=== PATIENT | male | born 1975 | race Caucasian/White ===

== ENCOUNTER 2024-02-21 18:10 | Emergency (ER) | payer BC, SELFPAY ==
[2024-02-21 18:23] VITALS: BP 142/89; PULSE 61; RESP 18; TEMP 36.8; O2SAT 99; BMI 23.4
--- NOTE | 2024-02-21 18:32 | XR_ITS ---
Examination: CT abdomen and pelvis without contrast. Coronal 3-D reconstructions. Sagittal 2-D reconstructions. Date and time of exam:February 21, 2024 1903 hrs. Comparison November 09, 2023 Indications: Bilateral flank pain 2 months, history right hydronephrosis secondary to right ureteral calculus on CT stone study November 09, 2023 CTDI: vol (mGy): 6.72 DLP: (mGycm): 411 Technique: Axial images of the abdomen have been obtained, 3 mm slice thickness Intravenous contrast material has not been administered. Low dose protocols were performed. One or more of the following dose reduction techniques were used; automated exposure control, adjustment of the mA and/or KV according to patient size, use of iterative reconstruction technique. Findings: No focal liver or splenic lesions No gallstones No pancreatic or adrenal mass 4 mm lower pole left renal calculus Mild to moderate right hydronephrosis secondary to 6 mm, 2 mm proximal right ureteral calculi, coronal image 81 Normal appendix No bowel obstruction No prostatomegaly No bladder mass The osseous structures are intact Impression: Mild to moderate right hydronephrosis secondary to 6 mm and 2 mm proximal right ureteral calculi
--- NOTE | 2024-02-21 18:34 | EDNOTE_ITS ---
ED Male Genitalurinary RME/HPI General Chief complaint: Urogenital-Male Stated complaint: I THING I'M HAVING KIDNEY STONES Time Seen by Provider: 02/21/24 18:35 Source: patient Arrival date/time: 02/21/24 18:10 48-year-old male with a history of hyperlipidemia presents to the emergency room with a chief complaint of left-sided flank pain and bilateral lower abdominal pain x 1 day. Patient states he has a history of kidney stones and the pain has been very similar. Mode of arrival: ambulatory Limitations: no limitations Related Data Home Medications ?Medication ?Instructions ?Recorded ?Confirmed lisinopril 20 mg tablet 20 mg PO QDAY 10/10/23 11/27/23 tamsulosin 0.4 mg capsule 0.4 mg PO QHS 11/27/23 11/27/23 Previous Rx's ?Medication ?Instructions ?Recorded hydrocodone 5 mg-acetaminophen 325 1 tab PO BID PRN pain #10 tabs 02/22/24 mg tablet tamsulosin 0.4 mg capsule (Flomax) 0.4 mg PO QDAY #14 caps 02/22/24 Allergies Allergy/AdvReac Type Severity Reaction Status Date / Time NKA* Allergy Uncoded 02/21/24 18:11 Review of Systems Review of Systems Systems Reviewed: All systems reviewed, normal except as documented Constitutional Constitutional: Reports system reviewed and no additional complaints, except as documented, Denies fatigue, Denies fever(s), Denies headache(s) and Denies weakness Eyes Eyes: Reports system reviewed and no additional complaints, except as documented, Denies blurry vision and Denies change in vision ENT Ears, Nose, Mouth, and Throat: Reports system reviewed and no additional complaints, except as documented, Denies otalgia, Denies headache(s), Denies nasal congestion, Denies throat swelling and Denies vertigo Cardiovascular Cardiovascular: Reports system reviewed and no additional complaints, except as documented, Denies chest pain, Denies dyspnea and Denies dyspnea on exertion Respiratory Respiratory: Reports system reviewed and no additional complaints, except as documented, Denies chest congestion, Denies cough, Denies dyspnea, Denies dyspnea on exertion and Denies wheezing Gastrointestinal Gastrointestinal: Reports system reviewed and no additional complaints, except as documented, Denies abdominal pain, Denies cramping, Denies nausea and Denies vomiting Genitourinary Genitourinary: Reports system reviewed and no additional complaints, except as documented, Reports dysuria and Reports hematuria Musculoskeletal Musculoskeletal: Reports system reviewed and no additional complaints, except as documented and Reports back pain Integumentary/Breasts Skin/Breast: Reports system reviewed and no additional complaints, except as documented and Denies wounds Neurologic Neurologic: Reports system reviewed and no additional complaints, except as documented, Denies confusion, Denies headache(s), Denies lack of coordination, Denies vertigo and Denies weakness Psychiatric Psychiatric: Reports system reviewed and no additional complaints, except as documented, Denies anxiety, Denies confusion, Denies depression, Denies paranoia, Denies suicidal ideation and Denies tactile hallucinations Endocrine Endocrine: Reports system reviewed and no additional complaints, except as documented and Denies fatigue Hematologic/Lymphatic Hematologic/Lymphatic: Reports system reviewed and no additional complaints, except as documented and Denies lymphadenopathy Allergic/Immunologic Allergic/Immunologic: Reports system reviewed and no additional complaints, except as documented, Denies throat swelling, Denies urticaria and Denies wheezing Past Medical History Social History SMOKING STATUS: Never smoker ED Exam General Limitations: Present no limitations General appearance: Present alert and in no apparent distress Head Head exam: Present atraumatic Eye Eye exam: Present normal appearance, PERRL and EOMI ENT ENT exam: Present normal exam, normal oropharynx and mucous membranes moist Neck Neck exam: Present normal inspection, full ROM and trachea midline Chest Chest inspection: Present normal inspection and symmetric chest wall rise Respiratory Respiratory exam: Present normal lung sounds bilaterally Cardiovascular Cardiovascular exam: Present regular rate, normal rhythm and normal heart sounds Abdominal Exam Abdominal exam: Present soft and normal bowel sounds Extremities Exam Extremities exam: Present normal inspection and full ROM Back Exam Back exam: Present normal inspection, full ROM and CVA tenderness (L) Neurological Exam Neurological exam: Present alert, oriented X3 and CN II-XII intact Psychiatric Psychiatric exam: Present normal affect and normal mood Skin Skin exam: Present warm, dry, intact and normal color Course Quality Measures none Orders Category Date Time Status Insert IV NOW Care 02/21/24 20:[address] abdomen pelvis wo con Stat Exams 02/21/24 18:32 Completed CBC Stat Lab 02/21/24 18:38 Completed CMP [Comprehensive Metabolic Panel] Stat Lab 02/21/24 18:38 Completed Lipase Stat Lab 02/21/24 18:38 Completed UA [Urinalysis] Stat Lab 02/21/24 19:33 Completed Urine Culture Stat Lab 02/21/24 19:33 Received HYDROcodone*/APAP 5/325 [[place] 5/325] Med 02/21/24 20:48 Discontinued 1 tab PO X1 ONE Ketorolac Inj [Toradol Inj] Med 02/21/24 18:32 Discontinued 30 mg IM X1 ONE Morphine Inj Med 02/21/24 21:16 Discontinued 4 mg IVP X1 ONE Ondansetron Inj [Zofran Inj] Med 02/21/24 21:16 Discontinued 4 mg IV X1 ONE Piper/Tazo Inj [Zosyn Inj] 3.375 gm Med 02/21/24 20:52 Discontinued Sodium Chloride 0.9% (P) [Ns 0.9% (P)] 50 ml IV X1 Vital Signs Vital signs: Vital Signs Temperature 98.3 F 02/21/24 18:23 Pulse Rate 61 02/21/24 18:23 Respiratory Rate 18 02/21/24 18:23 Blood Pressure 142/89 H 02/21/24 18:23 Pulse Oximetry (%) 99 02/21/24 18:23 Oxygen Delivery Method Room Air 02/21/24 18:23 O2 saturation 99% within normal limits Urogenital - Male MDM Narrative MDM Narrative:: 48-year-old male with a history of hyperlipidemia presents to the emergency room with a chief complaint of left-sided flank pain and bilateral lower abdominal pain x 1 day. Patient states he has a history of kidney stones and the pain has been very similar. Clinically the patient appears nontoxic and in no apparent distress. Physical examination shows left-sided 7 out of 10 CVA tenderness with bilateral 7 out of 10 lower abdominal pain with palpation. CT of the abdomen pelvis was completed and shows mild to moderate right hydronephrosis secondary to a 6 mm and a 2 mm proximal right ureteral calculi. The patient also has an elevated white count as well as urinary tract infection. The patient was given IV antibiotics and my attending physician Dr. Chicas spoke to a urologist and the transfer center. Based on the urologist's recommendations and after speaking with my attending physician Dr. Trevino the patient is ready for discharge with pain medication. The patient states he will see his urologist Dr. Hung tomorrow morning. Patient was given strict return precautions and educated to return to the emergency room for any evidence of worsening signs or send Patient data External records reviewed:: [facility] previous records Clinical information provided by:: patient Social determinants that could affect healthcare access:: none Patient has the following chronic illnesses:: No chronic illness How is presenting disease/condition affected by chronic disease/condition?: no chronic disease Evaluation data The following diagnostics were reviewed and interpreted by me:: lab results and radiology exam(s) Lab and/or radiology exams considered but not ordered:: Labs and radiology exams considered and ordered Interpretation Summary: CT abdomen and pelvis-Findings: No focal liver or splenic lesions No gallstones No pancreatic or adrenal mass 4 mm lower pole left renal calculus Mild to moderate right hydronephrosis secondary to 6 mm, 2 mm proximal right ureteral calculi, coronal image 81 Normal appendix No bowel obstruction No prostatomegaly No bladder mass The osseous structures are intact Impression: Mild to moderate right hydronephrosis secondary to 6 mm and 2 mm proximal right ureteral calculi Medications / Prescriptions Medications or Prescriptions considered but not ordered:: Rx given Medication administrations:: Medication Administration History Discontinued Medications Hydrocodone Bitart/Acetaminophen (Hydrocodone/Apap 5/325 Tablet) 1 tab PO X1 ONE Stop: 02/21/24 20:49 Last Admin: 02/21/24 23:17 Dose: Not Given Documented By: GUICHO Non-Admin Reason: Discontinued Piperacillin Sod/Tazobactam (Sod 3.375 gm/ Sodium Chloride) 50 mls @ 100 mls/hr IV X1 ONE Stop: 02/21/24 21:21 Last Infusion: 02/21/24 22:45 Dose: Infused Documented By: Admin: 02/21/24 21:24 Dose: 100 mls/hr Documented By: GUICHO Ketorolac Tromethamine (Ketorolac Inj 60 Mg/2 Ml Vial) 30 mg IM X1 ONE Stop: 02/21/24 18:33 Last Admin: 02/21/24 18:39 Dose: 30 mg Documented By: GUICHO Morphine Sulfate (Morphine Sulf Inj 10 Mg/Ml Vial) 4 mg IVP X1 ONE Stop: 02/21/24 21:17 Last Admin: 02/21/24 21:24 Dose: 4 mg Documented By: GUICHO Ondansetron HCl (Ondansetron Inj 2 Mg/Ml Inj 2 Ml) 4 mg IV X1 ONE; Protocol Stop: 02/21/24 21:17 Last Admin: 01/15/25 21:24 Dose: 4 mg Documented By: MP Rx given Consultations Consultation(s) initiated? (list below): No Diagnosis Urogenital Male Differential Diagnosis: urinary tract infection, urethritis, epididymitis, acute retention of urine and other (Ureteral calculi) Most likely diagnosis given after review of the tests above:: Ureteral calculi Admission Indicated Admission indicated?: not indicated Admission Request Was there a request for admission?: No Disposition Plan Disposition Plan: Discharge Discharge Attestation Discharge Attestation: The patient and all family members were given an opportunity to ask questions and understood the discharge instructions. Discharge instructions specifically effects, indications for sooner follow up or return to the emergency department, and the expected course of current diagnosis. Patient condition: Stable Discharge Plan Plan Patient Disposition: HOME (Self Care) Disposition Comment: Stable Prescriptions/Referrals Prescriptions/Med Rec: New tamsulosin [Flomax] 0.4 mg capsule 0.4 mg PO QDAY Qty: 14 0RF hydrocodone-acetaminophen 5-325 mg tablet 1 tab PO BID MDD 10mg PRN (Reason: pain) Qty: 10 0RF No Action lisinopril 20 mg tablet 20 mg PO QDAY tamsulosin 0.4 mg capsule 0.4 mg PO QHS Referrals: Payton Schilling MD [Primary Care Provider] - In 1 week Problem List Clinical Impression: Hydronephrosis with ureteral calculus, Urinary tract infection Patient/Caregiver Discharge Instructions Education Materials: ED Pyelonephritis, Male (Adult) Additional Instructions: Please follow-up with your urologist in the next 24 to 48 hours. Pain medication was sent to your pharmacy please pick it up and take it as indicated. You have a stone in your ureter, it is very important to see your urologist as soon as possible to help resolve this problem. For any evidence of worsening signs or symptoms please return to the emergency room immediately Print Language: Bulgarian Stand Alone Forms: Estelita Award Info., Patient Portal Info Letter HECTOR/KIMBERLY Supervising Physician HECTOR/KIMBERLY Supervising Physician: Dr. Chicas
[2024-02-21] MEDS: KETOROLAC INJ 60 MG/2 ML VIAL 30 MG IM (18:39)
[2024-02-21 18:57] LABS: Basophils % (Auto) 0 % (0-2.5); Eosinophils # (Auto) 0.1 Thou/mm3 (0.0-0.5); Eosinophils % (Auto) 0 % (0-10); Hematocrit 38.9 % (41.0-53.0); Hemoglobin 13.7 g/dL (13.5-16.0); Immature Granulocytes % (Auto) 0 % (0-0); Immature Granulocytes Auto 0.07 Thou/mm3 (0.00-0.00); Lymphocytes # (Auto) 1.3 Thou/mm3 (1.0-4.8); Lymphocytes % (Auto) 8 % (10-50); Mean Corpuscular HGB Conc 35.2 g/dl (31.0-37.0); Mean Corpuscular Hemoglobin 30.3 pg (25.0-35.0); Mean Corpuscular Volume 86 fL (80-100); Monocytes # (Auto) 1.3 Thou/mm3 (0.0-0.8); Monocytes % (Auto) 8 % (0-12); Neutrophils # (Auto) 13.9 Thou/mm3 (1.8-7.7); Neutrophils % (Auto) 84 % (37-80); Nucleated Red Blood Cell % 0 /100 WBC (0); Platelet Count 248 Thou/mm3 (140-440); RDW Standard Deviation 40.6 fL (35.1-43.9); Red Blood Count 4.52 Miln/mm3 (4.50-5.90); White Blood Count 16.7 Thou/mm3 (3.8-10.6)
[2024-02-21 19:28] LABS: Alanine Aminotransferase 26 U/L (10-49); Albumin, Serum 5.2 gm/dL (3.5-5.0); Albumin/Globulin Ratio 2.6 (1.2-2.2); Alkaline Phosphatase 85 U/L (46-116); Anion Gap 9 (7-16); Aspartate Amino Transferase 21 U/L (0-34); BUN/Creatinine Ratio 9 Ratio (12-20); Bilirubin,Total 0.5 mg/dL (0.3-1.2); Blood Urea Nitrogen 10 mg/dL (9-23); Carbon Dioxide 28.1 mMol/L (20.0-31.0); Chloride 102 mMol/L (98-107); Creatinine (Component) 1.1 mg/dL (0.6-1.3); Estimated Creatinine Clearance 85.7 mL/min (>60); Glucose 121 mg/dL (74-106); Lipase 67 U/L (12-53); Osmolality,Calculated 277 (275-295); Potassium 4.2 mMol/L (3.4-5.1); Sodium 139 mMol/L (136-145); Total Protein 7.2 gm/dL (5.7-8.2); eGFR > 60 See Note
[2024-02-21 19:50] LABS: Collection Type, Urine Clean Catch
[2024-02-21 20:11] LABS: Bilirubin,Urine Negative (Negative); Blood,Urine 2+ (Negative); Clarity,Urine Clear (Clear/Hazy); Color,Urine Yellow (Lt Yel-Yel); Glucose, Urine Negative (Negative); Ketones,Urine Negative (Negative); Leukocyte Esterase,Urine Positive (Negative); Nitrite,Urine Negative (Negative); Protein,Urine 1+ (Neg - Trace); RBC,Urine 27 /hpf (0-3); Specific Gravity,Urine 1.033 (1.001-1.035); Squamous Epithelial Cell,Urine < 1 /hpf (0-5); Urobilinogen,Urine Negative mg/dL (0.0-1.0); WBC,Urine 38 /hpf (0-5)
[2024-02-21] MEDS: ONDANSETRON INJ 2 MG/ML INJ 2 ML 4 MG IV (21:24)
[2024-02-21] MEDS: PIPER/TAZO INJ 3.375 GM in SODIUM CHLORIDE 0.9% (P) 50 ML IV (21:24)
[2024-02-21] MEDS: MORPHINE SULF INJ 10 MG/ML VIAL 4 MG IVP (21:24)
[2024-02-22 00:50] VITALS: RESP 18
== END 2024-02-22 00:50 | disposition home or self-care (01) ==
PROVIDERS: Nurse Practitioner Family; Emergency Provider Emergency Medicine; PCP Family Medicine
DX: N13.6 Pyonephrosis (principal)
CPT/HCPCS: 36415; 74176; 80053; 81001; 83690; 85025; 87086; 96361; 96372; 96374; 99284; J1885; J2270; J2405; J2543; J7050